=== PATIENT | male | born 1980 | race Caucasian/White ===

== ENCOUNTER 2022-07-01 22:43 | Emergency (ER) | payer OTHER ==
[~2022-07-01] VITALS: Ht 188 cm; Wt 104.5 kg
[~2022-07-01 22:43] MED LIST: CYCL-1 PO
[2022-07-01 23:51] VITALS: BP 118/82
== END 2022-07-02 00:19 | disposition home or self-care (01) ==
LOC: ER 22:43
DX: Z77.21 Contact with and (suspected) exposure to potentially hazardous body fluids (principal); G89.29 Other chronic pain; M54.9 Dorsalgia, unspecified; Z79.899 Other long term (current) drug therapy
CPT/HCPCS: 99281

== ENCOUNTER 2022-08-07 15:09 | Emergency (ER) | payer OTHER ==
[~2022-08-07] VITALS: Ht 182.9 cm; Wt 104.5 kg
[2022-08-07 15:22] VITALS: BP 143/97
== END 2022-08-07 16:00 | disposition home or self-care (01) ==
LOC: ER 15:10
DX: S83.8X2A Sprain of other specified parts of left knee, initial encounter (principal); G89.29 Other chronic pain; M54.9 Dorsalgia, unspecified; W17.89XA Other fall from one level to another, initial encounter; Y93.89 Activity, other specified; Y99.8 Other external cause status; Y92.89 Other specified places as the place of occurrence of the external cause
CPT/HCPCS: 73564; 99283

== ENCOUNTER 2022-08-23 09:54 | Emergency (ER) | payer OTHER ==
[~2022-08-23] VITALS: Ht 190.5 cm; Wt 105.0 kg
[2022-08-23 10:05] VITALS: BP 132/89
[2022-08-23] MEDS ORDERED: ketorolac tromethamine 15mg/ml inj. IM ONE (10:15)
[2022-08-23] MEDS ORDERED: orphenadrine citrate 60mg/2ml inj. IM ONE (10:15)
[2022-08-23] MEDS ORDERED: IBUP-1984 PO (10:16)
[2022-08-23] MEDS ORDERED: PRED20TA PO (10:16)
[2022-08-23] MEDS ORDERED: ORPH100T2 PO (10:16)
== END 2022-08-23 10:41 | disposition home or self-care (01) ==
LOC: ER 09:55
DX: S39.012A Strain of muscle, fascia and tendon of lower back, initial encounter (principal); M54.42 Lumbago with sciatica, left side; G89.29 Other chronic pain; Z79.899 Other long term (current) drug therapy; V09.9XXA Pedestrian injured in unspecified transport accident, initial encounter; Y93.89 Activity, other specified; Y92.89 Other specified places as the place of occurrence of the external cause; Y99.8 Other external cause status
CPT/HCPCS: 96372; 99284; J1885; J2360

== ENCOUNTER 2022-08-28 16:49 | Emergency (ER) | payer OTHER ==
[~2022-08-28] VITALS: Ht 182.9 cm; Wt 105.5 kg
[~2022-08-28 16:49] MED LIST changes: +IBUP-1984 PO; +ORPH100T2 PO; +PRED20TA PO
[2022-08-28 16:52] VITALS: BP 126/73
--- NOTE | 2022-08-28 17:02 | NUR ---
AFTER TRIAGING THE PT FELT LIGHTHEADED AGAIN AND SAT ON STOOL ,CALLED OUTREACH LIAISON TO GET STAT EKG .
[2022-08-28] MEDS ORDERED: normal saline 1000ML IV soln IVB ONE (17:05)
== END 2022-08-28 18:15 | disposition home or self-care (01) ==
LOC: ER 16:50 → MERGE 16:50 → ER 18:15
DX: S51.801A Unspecified open wound of right forearm, initial encounter (principal); W50.3XXA Accidental bite by another person, initial encounter; Y93.89 Activity, other specified; Y92.89 Other specified places as the place of occurrence of the external cause; Y99.8 Other external cause status
CPT/HCPCS: 93005; 99283; 99284

== ENCOUNTER 2022-09-28 16:38 | Emergency (ER) | payer BC, OTHER ==
[~2022-09-28] VITALS: Ht 180.3 cm; Wt 105.0 kg
[~2022-09-28 16:38] MED LIST changes: -IBUP-1984 PO; -PRED20TA PO
[2022-09-28 16:45] VITALS: BP 140/96
[2022-09-28] MEDS ORDERED: triamcinolone acetonide 0.5% cream 15gm TP STA (16:49)
[2022-09-28] MEDS ORDERED: triamcinolone acetonide 40mg/ml inj IM ONE (16:50)
== END 2022-09-28 17:34 | disposition home or self-care (01) ==
LOC: ER 16:39
DX: L23.9 Allergic contact dermatitis, unspecified cause (principal); Z79.899 Other long term (current) drug therapy
CPT/HCPCS: 96372; 99283; J3301

== ENCOUNTER 2023-02-11 10:52 | Emergency (ER) | payer BC ==
[~2023-02-11] VITALS: Ht 182.9 cm; Wt 103.0 kg
[~2023-02-11 10:52] MED LIST changes: -ORPH100T2 PO; +ORPH100T4 PO
[2023-02-11 10:54] VITALS: BP 132/82
[2023-02-11] MEDS ORDERED: LURA40TA2 PO (11:15)
== END 2023-02-11 11:19 | disposition home or self-care (01) ==
LOC: ER 10:52
DX: F41.9 Anxiety disorder, unspecified (principal); Z76.0 Encounter for issue of repeat prescription
CPT/HCPCS: 99281; 99283

== ENCOUNTER 2023-02-25 08:57 | Emergency (ER) | payer BC ==
[~2023-02-25] VITALS: Ht 183.5 cm; Wt 110.0 kg
[~2023-02-25 08:57] MED LIST changes: +LURA40TA2 PO
[2023-02-25 09:11] VITALS: BP 137/87
[2023-02-25] MEDS ORDERED: PRAZ1CAP5 PO (09:12)
== END 2023-02-25 10:23 | disposition home or self-care (01) ==
LOC: ER 08:58
DX: F51.4 Sleep terrors [night terrors] (principal); F43.10 Post-traumatic stress disorder, unspecified
CPT/HCPCS: 99281